=== PATIENT | female | born 1990 | race Two or more races ===

== ENCOUNTER 2024-11-05 06:59 | Inpatient (IN) | payer BC ==
[2024-11-05] MEDS ORDERED: Nalbuphine 10 MG/1 ML Vial IVPUSH PRN (07:15)
[2024-11-05] MEDS ORDERED: Lidocaine 1% 50 ML MDV INJECT PRN (07:15)
[2024-11-05] MEDS ORDERED: Ondansetron 4 MG/2 ML SDV IVPUSH PRN (07:15)
[2024-11-05] MEDS ORDERED: Sodium Chloride 0.9% 10 ML Syringe FLUSH PRN (07:15)
[2024-11-05] MEDS ORDERED: Oxytocin/0.9 % Sodium Chloride 30 UNIT/500 ML BAG IV SCH (07:15)
[2024-11-05 07:37] LABS: BASOPHILS PERCENT AUTO 0.2 % (0.0-1.0); EOSINOPHILS ABSOLUTE AUTO 0.1 K/mm3 (0.0-0.4); EOSINOPHILS PERCENT AUTO 0.9 % (0.0-6.0); HEMATOCRIT 40.6 % (37.0-47.0); HEMOGLOBIN 13.9 gm/dl (12.0-16.0); IMMATURE GRAN ABSOLUTE AUTO 0.05 K/mm3 (0.00-0.05); IMMATURE GRAN PERCENT AUTO 0.6 % (0.0-0.4); LYMPHOCYTES ABSOLUTE AUTO 1.1 K/mm3 (1.0-4.8); LYMPHOCYTES PERCENT AUTO 13.1 % (24.0-44.0); MEAN CORPUSCULAR HEMOGLOBIN 30.2 pg (28.0-32.0); MEAN CORPUSCULAR HGB CONC 34.2 g/dl (32.0-36.0); MEAN CORPUSCULAR VOLUME 88.3 fl (83.0-99.0); MEAN PLATELET VOLUME 10.7 fl (9.4-12.3); MONOCYTES ABSOLUTE AUTO 0.5 K/mm3 (0.0-0.8); MONOCYTES PERCENT AUTO 5.7 % (0.0-8.0); NEUTROPHILS ABSOLUTE AUTO 6.7 K/mm3 (1.8-7.7); NEUTROPHILS PERCENT AUTO 79.5 % (41.0-71.0); PLATELET COUNT,PLT 253 K/mm3 (150-400); WHITE BLOOD CELL COUNT,WBC 8.47 K/mm3 (3.9-11.3)
[2024-11-05] MEDS: Lactated Ringers 1,000 ML IV SCH (07:57)
[2024-11-05] MEDS: Oxytocin/0.9 % Sodium Chloride 30 UNIT/500 ML BAG IV SCH (07:58)
[2024-11-05] MEDS ORDERED: Sodium Chloride 0.9% 10 ML Syringe FLUSH SCH (09:00)
[2024-11-05] MEDS ORDERED: ePHEDrine 50 MG/ML SDV IVPUSH PRN (13:39)
[2024-11-05] MEDS ORDERED: diphenhydrAMINE 50 MG/ML SDV IVPUSH PRN (13:39)
[2024-11-05] MEDS: Bupivacaine/fentaNYL/NS 100 ML Bag EPIDUR PRN (14:02)
[2024-11-05] MEDS ORDERED: Docusate Sodium 100 MG Cap PO PRN (18:52)
[2024-11-05] MEDS ORDERED: Acetaminophen 325 MG Tab PO PRN (18:52)
[2024-11-05] MEDS: Witch Hazel Medicated Pads 40/Jar TOP PRN (19:24)
[2024-11-05] MEDS: Benzocaine/Menthol 20%-0.5% Spray 78 GM Cannister TOP PRN (19:24)
[2024-11-05] MEDS: Ibuprofen 600 MG Tab PO SCH (20:42)
== END 2024-11-06 18:45 | disposition home or self-care (01) | DRG 560 ==
LOC: JD.OB 06:59 → OBSVTOIN 17:09
PROVIDERS: ADMIT Obstetrics & Gynecology; ATTEND Obstetrics & Gynecology
PROC: 3E0R3BZ Introduction of Anesthetic Agent into Spinal Canal, Percutaneous Approach (ICD-10-PCS; principal; 2024-11-05)
PROC: 0KQM0ZZ Repair Perineum Muscle, Open Approach (ICD-10-PCS; principal; 2024-11-05)
PROC: 10E0XZZ Delivery of Products of Conception, External Approach (ICD-10-PCS; principal; 2024-11-05)
PROC: 3E033VJ Introduction of Other Hormone into Peripheral Vein, Percutaneous Approach (ICD-10-PCS; principal; 2024-11-05)
PROC: 10907ZC Drainage of Amniotic Fluid, Therapeutic from Products of Conception, Via Natural or Artificial Opening (ICD-10-PCS; principal; 2024-11-05)
DX: O26.643 Intrahepatic cholestasis of pregnancy, third trimester (principal); O70.1 Second degree perineal laceration during delivery; Z3A.37 37 weeks gestation of pregnancy; Z37.0 Single live birth; Z87.891 Personal history of nicotine dependence; Z79.899 Other long term (current) drug therapy
CPT/HCPCS: 36415; 51701; 51702; 59025; 59409; 85025; 86592; 86850; 86900; 86901; J3490; J7120; J7999